=== PATIENT | female | born 1970 | race Caucasian/White ===

== ENCOUNTER 2018-12-08 10:26 | Emergency (ER) | payer OTHER ==
[~2018-12-08] VITALS: Ht 165.1 cm; Wt 92.0 kg
[~2018-12-08 10:26] MED LIST: CLARITIN-D1 TA1 OR; FIORICET PO; FLONASE 60 DOS0.05 %; FLONASE NASAL50 MCG; LOESTRIN 24 PO; LORTAB 5-325 MG1 TAB PO; PRILOSEC20 MG/CAP PO; TORADOL PO; ULTRAM50 M1 PO; ZOFRAN ODT4 MG SL; ZOFRAN4 MG/TAB PO
[2018-12-08] MEDS ORDERED: CLARITIN RDT10 MG PO (11:02)
[2018-12-08 11:33] LABS: HEMATOCRIT 40.5 % (37.0-47.0); HEMOGLOBIN 13.1 g/dl (12.0-16.0); IMMATURE GRANULOCYTES 0.2 % (0.0-5.0); MEAN CELL VOLUME 86.2 fL CALC (80.0-100.0); MEAN CORPUSCULAR HGB 27.9 pG CALC (26.0-32.0); MEAN CORPUSCULAR HGB CONC 32.3 g/L CALC (32.0-36.0); NEUT# 4.88 thou/uL (2.00-7.15); RED BLOOD COUNT 4.7 mill/uL (4.20-5.60); RED CELL DISTRI WIDTH 12.9 % (11.5-15.5)
[2018-12-08 11:34] LABS: URINE BILIRUBIN - DIPSTICK NEGATIVE (NEGATIVE); URINE BLOOD DIPSTICK NEGATIVE (NEGATIVE); URINE COLOR YELLOW; URINE GLUCOSE - DIPSTICK NEGATIVE (NEGATIVE); URINE KETONE NEGATIVE (NEGATIVE); URINE LEUK ESTERASE NEGATIVE (NEGATIVE); URINE NITRITE - DIPSTICK NEGATIVE (Negative); URINE PROTEIN - DIPSTICK NEGATIVE (NEG-TRACE); URINE UROBILINOGEN - DIPSTICK 0.2 E.U./dL (0.2)
[2018-12-08 11:48] LABS: ALBUMIN 4.2 g/dL (3.2-5.0); ALKALINE PHOSPHATASE 66 u/l (38-126); ANION GAP 16 (6-22 (CALC)); BILIRUBIN, TOTAL 0.5 mg/dL (0.0-1.4); BUN 10 mg/dL (7-17); BUN/CREATININE RATIO 17 (12-20 (CALC)); CARBON DIOXIDE 23 mmol/l (22-30); CHLORIDE 106 mmol/l (95-108); CREATININE 0.6 mg/dL (0.5-1.0); GFR > 60 ML/MIN (>=60 (CALC)); GFR FOR AFR.AMER. > 60 ML/MIN (>=60 (CALC)); LIPASE 153 u/l (23-300); POTASSIUM 4.3 mmol/l (3.5-5.1); SGOT/AST 14 u/l (14-36); SODIUM 141 mmol/l (137-146); TOTAL PROTEIN 7.4 g/dL (6.3-8.2)
[2018-12-08 12:10] VITALS: BP 118/80
== END 2018-12-08 12:10 | disposition home or self-care (01) | DRG 379 ==
LOC: ED 10:26
PROVIDERS: Family Medicine
DX: K92.1 Melena (principal)

== ENCOUNTER 2018-12-09 10:23 | Emergency (ER) | payer OTHER ==
[~2018-12-09] VITALS: Ht 165.1 cm; Wt 90.9 kg
[~2018-12-09 10:23] MED LIST changes: +CLARITIN RDT10 MG PO
[2018-12-09 10:55] LABS: HEMATOCRIT 38.3 % (37.0-47.0); HEMOGLOBIN 12.3 g/dl (12.0-16.0)
[2018-12-09 11:35] VITALS: BP 138/80
== END 2018-12-09 11:35 | disposition home or self-care (01) | DRG 392 ==
LOC: ED 10:23
PROVIDERS: Family Medicine
DX: R19.5 Other fecal abnormalities (principal)

== ENCOUNTER 2021-09-17 06:38 | Emergency (ER) | payer OTHER ==
[~2021-09-17] VITALS: Ht 165.1 cm; Wt 77.0 kg
[2021-09-17] VITALS (9 sets, daily range): BP systolic 131–183; BP diastolic 82–99
[2021-09-17 08:17] LABS: URINE BILIRUBIN - DIPSTICK NEGATIVE (NEGATIVE); URINE BLOOD DIPSTICK TRACE-INTACT (NEGATIVE); URINE COLOR YELLOW; URINE GLUCOSE - DIPSTICK NEGATIVE (NEGATIVE); URINE KETONE NEGATIVE (NEGATIVE); URINE LEUK ESTERASE NEGATIVE (NEGATIVE); URINE PROTEIN - DIPSTICK NEGATIVE (NEG-TRACE); URINE SPECIFIC GRAVITY <=1.005; URINE UROBILINOGEN - DIPSTICK 0.2 E.U./dL (0.2)
[2021-09-17 08:19] LABS: URINE NITRITE - DIPSTICK NEGATIVE (Negative)
[2021-09-17 08:51] LABS: HEMATOCRIT 42.2 % (37.0-47.0); HEMOGLOBIN 13.7 g/dl (12.0-16.0); IMMATURE GRANULOCYTES 0.2 % (0.0-5.0); MEAN CELL VOLUME 89.2 fL CALC (80.0-100.0); MEAN CORPUSCULAR HGB CONC 32.5 g/dL CAL (32.0-36.0); NEUT# 4.53 thou/uL (2.00-7.15); RED BLOOD COUNT 4.73 mill/uL (4.20-5.60); RED CELL DISTRI WIDTH 12.2 % (11.5-15.5)
[2021-09-17 09:12] LABS: ALBUMIN 4.1 g/dL (3.2-5.0); ALKALINE PHOSPHATASE 74 u/l (38-126); ANION GAP 12 (6-22 (CALC)); BILIRUBIN, TOTAL 0.4 mg/dL (0.0-1.4); BUN 9 mg/dL (7-17); BUN/CREATININE RATIO 14 (12-20 (CALC)); CARBON DIOXIDE 25 mmol/l (22-30); CHLORIDE 107 mmol/l (95-108); CREATININE 0.7 mg/dL (0.5-1.0); GFR > 60 ML/MIN (>=60 (CALC)); GFR FOR AFR.AMER. > 60 ML/MIN (>=60 (CALC)); POTASSIUM 3.9 mmol/l (3.5-5.1); SGOT/AST 24 u/l (14-36); SODIUM 140 mmol/l (137-146); TOTAL PROTEIN 7.6 g/dL (6.3-8.2)
[2021-09-17] MEDS ORDERED: ATIVAN0.5 MG PO (09:31)
== END 2021-09-17 09:47 | disposition home or self-care (01) | DRG 305 ==
LOC: ED 06:38
PROVIDERS: Emergency Medicine
DX: I10 Essential (primary) hypertension (principal); F41.9 Anxiety disorder, unspecified; K21.9 Gastro-esophageal reflux disease without esophagitis
CPT/HCPCS: J2060

== ENCOUNTER 2023-07-21 07:39 | Observation (INO) | payer OTHER ==
[2023-07-21] VITALS (13 sets, daily range): BP systolic 96–153; BP diastolic 60–90
[~2023-07-21] VITALS: Ht 165.1 cm; Wt 101.6 kg
[~2023-07-21 07:39] MED LIST changes: +ATIVAN0.5 MG PO
[2023-07-21 08:24] LABS: BASO% 0.4 % (0-3); EOS% 3.6 % (0-8); HEMATOCRIT 38.4 % (37.0-47.0); HEMOGLOBIN 12.1 g/dl (12.0-16.0); IMMATURE GRANULOCYTES 0.1 % (0.0-5.0); LYMPH% 19.9 % (15-41); MEAN CORPUSCULAR HGB 25.9 pG CALC (26.0-32.0); MEAN CORPUSCULAR HGB CONC 31.5 g/dL CAL (32.0-36.0); MONO% 7.7 % (2-13); NEUT# 6.4 thou/uL (2.00-7.15); NEUT% 68.3 % (42-76); RED BLOOD COUNT 4.68 mill/uL (4.20-5.60); RED CELL DISTRI WIDTH 12.8 % (11.5-15.5)
[2023-07-21 08:25] LABS: MEAN CELL VOLUME 82.1 fL CALC (80.0-100.0)
[2023-07-21 08:45] LABS: PROTHROMBIN TIME 9.3 SECONDS (9.0-12.5)
[2023-07-21 08:46] LABS: ALBUMIN 4.2 g/dL (3.2-5.0); ALKALINE PHOSPHATASE 72 u/l (38-126); ANION GAP 11 (6-22 (CALC)); BILIRUBIN, TOTAL 0.4 mg/dL (0.02-1.3); BUN 15 mg/dL (7-17); BUN/CREATININE RATIO 24 (12-20 (CALC)); CALCULATED LDLCHOLESTEROL 96 mg/dL (62-129 (CALC)); CARBON DIOXIDE 23 mmol/l (22-30); CHLORIDE 107 mmol/l (95-108); CHOLESTEROL HDL RATIO 3.2 (<4.4 (CALC)); CREATININE 0.6 mg/dL (0.5-1.0); GFR FOR AFR.AMER. > 60 ML/MIN (>=60 (CALC)); GFR OTHER RACES > 60 ML/MIN (>=60 (CALC)); HDL CHOLESTEROL 50 mg/dL (39.0-59.0); SGOT/AST 25 u/l (14-36); SODIUM 137 mmol/l (137-146); TOTAL CHOLESTEROL 162 mg/dl (0-199); TOTAL PROTEIN 7.4 g/dL (6.3-8.2); TOTAL TRIGLYCERIDES 75 mg/dl (0-149); VLDL CHOLESTROL 15 mg/dl (2-49 (CALC))
[2023-07-21] MEDS ORDERED: INDERAL 20MG TA20 MG PO (09:09)
[2023-07-21 10:29] LABS: URINE BILIRUBIN - DIPSTICK Negative (NEGATIVE); URINE BLOOD DIPSTICK Large (NEGATIVE); URINE GLUCOSE - DIPSTICK Negative (NEGATIVE); URINE KETONE Negative (NEGATIVE); URINE LEUK ESTERASE Negative (NEGATIVE); URINE NITRITE - DIPSTICK Negative (Negative); URINE PROTEIN - DIPSTICK Negative (NEG-TRACE); URINE SPECIFIC GRAVITY 1.015; URINE UROBILINOGEN - DIPSTICK 0.2 E.U./dL (0.2)
[2023-07-21 10:34] LABS: URINE COLOR Pink
[2023-07-21 10:42] LABS: URINE RBC 50-100 RBC/hpf (0-5); URINE SQUAMOUS EPITHELIAL CELL FEW EPI/hpf (0-FEW)
[2023-07-22 00:29] VITALS: BP 95/48
[2023-07-22 04:52] VITALS: BP 110/67
[2023-07-22 05:17] LABS: C-REACTIVE PROTEIN 1.1 mg/dL (0-0.9)
[2023-07-22 07:14] VITALS: BP 121/64
[2023-07-22 08:10] VITALS: BP 124/63
[2023-07-22 10:44] VITALS: BP 108/54
[2023-07-22] MEDS ORDERED: ASPIRIN81 MG PO (11:25)
== END 2023-07-22 12:49 | disposition home or self-care (01) | DRG 69 ==
LOC: ED 07:39 → ED-I 09:04 → ED 10:19 → MS2 10:20
PROVIDERS: Emergency Medicine; ADMIT Student in an Organized Health Care Education/Training Program; ATTEND Student in an Organized Health Care Education/Training Program
DX: G45.9 Transient cerebral ischemic attack, unspecified (principal); I10 Essential (primary) hypertension; F41.9 Anxiety disorder, unspecified; K21.9 Gastro-esophageal reflux disease without esophagitis
CPT/HCPCS: G0378; J1650; Q9967